=== PATIENT | female | born 1960 | race Two or more races ===

== ENCOUNTER → 2024-04-03 | Outpatient (CLI) | payer BC, SELFPAY ==
--- NOTE | 2024-04-03 15:59 | EKG_ITS ---
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
== END | disposition home or self-care (01) ==
LOC: SEKG 15:49
PROVIDERS: PCP Internal Medicine; Referring Provider Specialist; Visit Provider Specialist
DX: Z01.818 Encounter for other preprocedural examination (principal)
CPT/HCPCS: 93005

== ENCOUNTER → 2024-06-10 | Outpatient (CLI) | payer BC, SELFPAY ==
--- NOTE | 2024-06-10 15:00 | XR_ITS ---
Examination: CT abdomen with intravenous contrast CT pelvis with intravenous contrast 2-D coronal reconstructions 2-D sagittal reconstructions Date and time of exam:June 10, 2024 1546 hours INDICATIONS: Onset left lower quadrant abdominal pain beginning August 2023 COMPARISON: 11/02/2021. CTDI: vol (mGy) 20.7 DLP: (mGycm) 636 Technique: Multiple axial sections of the abdomen and pelvis have been obtained. 64 slice high-resolution scanner used. 3 mm axial sections have been obtained, post intravenous injection 60 cc [id number] 2-D sagittal, coronal reconstructions obtained. Low dose protocols were performed. One or more of the following dose reduction techniques were used; automated exposure control, adjustment of the mA and/or KV according to patient size, use of iterative reconstruction technique. Findings: Mild intrahepatic biliary tract dilatation Absent gallbladder No pancreatic or adrenal mass No renal or ureteral calculi, no hydronephrosis Aorta normal size Normal appendix No bowel obstruction No pelvic mass Urinary bladder wall thickened up to 10 mm Fat-containing hernias IMPRESSION: Normal appendix No bowel obstruction Thickening of the urinary bladder wall as above, consider cystitis pattern
== END | disposition home or self-care (01) ==
PROVIDERS: PCP Internal Medicine; Referring Provider Specialist; Visit Provider Specialist
DX: N32.89 Other specified disorders of bladder (principal)
CPT/HCPCS: 74177; A4649; Q9963; Q9967